=== PATIENT | male | born 1990 | race Caucasian/White ===

== ENCOUNTER 2024-03-23 04:00 | Day surgery (SDC) | payer OTHER ==
[2024-03-23] VITALS (211 sets, daily range): BP systolic 85–129; BP diastolic 43–85
[~2024-03-23] VITALS: Ht 182.9 cm; Wt 79.5 kg
--- NOTE | 2024-03-23 07:00 | NUR ---
Patient arrived to the ANR suite, identification and demographics confirmed. Patient to room 9, AAO, ambulatory, vitals obtained, ID/allergy/fall bands placed, changed into hospital gown, MARIN hose, and non-slip socks. Procedure and timeline explained for treatment and discharge. All questions answered and the patient presents no concerns at this time.
[2024-03-23] MEDS ORDERED: cloNIDine HCL 0.1 MG/TAB PO PRN (07:30)
[2024-03-23] MEDS ORDERED: PANTOPRAZOLE SODIUM Sesquihydr 40 MG/TAB PO PRN (07:30)
[2024-03-23] MEDS ORDERED: ALBUTEROL SULFATE 2.5 MG VIAL IN PRN (07:30)
[2024-03-23] MEDS ORDERED: SCOPOLAMINE 1.5 MG DIS TD PRN (07:30)
[2024-03-23] MEDS ORDERED: FAMOTIDINE 20 MG/TAB PO PRN (07:30)
[2024-03-23] MEDS ORDERED: LACTATED RINGER'S 1,000 ML IV PRN ×3 (07:30→19:00)
[2024-03-23] MEDS ORDERED: diazePAM 5 MG/TAB PO PRN ×2 (07:30→08:30)
[2024-03-23] MEDS ORDERED: CYANOCOBALAMIN 500 MCG/TAB ( B12) PO PRN (07:30)
--- NOTE | 2024-03-23 07:39 | NUR ---
Dr. Sales telephoned with patient intake information including usage, dose, last dose/time taken and initial vital signs. Patient history and allergies reviewed with MD. Orders received for 10 mg PO Valium and 0.1 mg PO Clonidine now. Will reassess per protocol in 1.5 hours and update MD with assessment and vitals.
[2024-03-23] MEDS ORDERED: ASCORBIC ACID 4,000 MG in SODIUM CHLORIDE 0.9% 1,000 ML IV SCH (08:00)
[2024-03-23 08:25] LABS: BASO% 0.9 % (0-3); EOS% 5.1 % (0-8); HEMATOCRIT 42.4 % (39.0-50.0); HEMOGLOBIN 14.2 g/dl (14.0-18.0); IMMATURE GRANULOCYTES 0.3 % (0.0-5.0); LYMPH% 25.4 % (15-41); MEAN CELL VOLUME 92.6 fL CALC (80.0-100.0); MEAN CORPUSCULAR HGB CONC 33.5 g/dL CAL (32.0-36.0); MONO% 11.9 % (2-13); NEUT# 7.18 thou/uL (1.82-7.42); NEUT% 56.4 % (42-76); RED BLOOD COUNT 4.58 mill/uL (4.70-6.10); RED CELL DISTRI WIDTH 14.1 % (11.5-15.5)
[2024-03-23 08:36] LABS: ALBUMIN 4.2 g/dL (3.2-5.0); BILIRUBIN, TOTAL 0.6 mg/dL (0.2-1.3); MAGNESIUM 2.1 mg/dL (1.6-2.3); POTASSIUM 4.3 mmol/l (3.5-5.1); TOTAL PROTEIN 6.9 g/dL (6.3-8.2)
--- NOTE | 2024-03-23 09:15 | NUR ---
Patient resting comfortably in bed. Easily aroused, maintains focus, and drifts back to sleep. No signs of active withdrawal or distress noted at this time. Continuous SPO2, rhythm, and respiratory monitoring initiated. IVF @ 250 mL/HR, room air, VSS.
[2024-03-23] MEDS ORDERED: DiphenhydrAMINE HCL 50 MG/ML SDV IV PRN (10:05)
[2024-03-23] MEDS ORDERED: THIAMINE HCL 100 MG/ML 2ML VIAL IV PRN (10:05)
[2024-03-23] MEDS ORDERED: DEXAMETHASONE SODIUM PHOSPHATE PF 10 MG/ML SDV IV PRN ×2 (10:05→19:00)
[2024-03-23] MEDS ORDERED: cloNIDine HCL 0.1 MG/TAB VT PRN (10:05)
[2024-03-23] MEDS ORDERED: STERILE WATER FOR IRRIGATION 1,000 ML BTL IR PRN (10:05)
[2024-03-23] MEDS ORDERED: cloNIDine HYDROCHLORIDE 100 MCG/ML 10 ML INJ IV PRN (10:05)
[2024-03-23] MEDS ORDERED: PROPOFOL 10 MG/ML 100ML VIAL IV PRN (10:05)
[2024-03-23] MEDS ORDERED: ROCURONIUM BROMIDE 10 MG/ML 5ML VIAL IV PRN (10:05)
[2024-03-23] MEDS ORDERED: diazePAM 5 MG/TAB VT PRN (10:05)
[2024-03-23] MEDS ORDERED: LIDOCAINE HCL 1% (10MG/ML) 100 MG/10 ML MDV IV PRN (10:05)
[2024-03-23] MEDS ORDERED: OCTREOTIDE ACETATE 100 MCG/VIAL SDV SC PRN (10:05)
[2024-03-23] MEDS ORDERED: PROPOFOL 100 ML IV PRN (10:05)
[2024-03-23] MEDS ORDERED: POTASSIUM CHLORIDE 10 MEQ/50 ML BAG IV PRN (10:05)
[2024-03-23] MEDS ORDERED: ONDANSETRON HCl 4 MG/2 ML SDV IV PRN ×3 (10:05→19:00)
[2024-03-23] MEDS ORDERED: LIDOCAINE HCL 1% (10MG/ML) 100 MG/10 ML MDV VT PRN ×2 (10:05)
[2024-03-23] MEDS ORDERED: SUCCINYLCHOLINE CHLORIDE 20 MG/ML 10ML VIAL IV PRN (10:05)
[2024-03-23] MEDS ORDERED: NALTREXONE HCL 50 MG/TAB VT PRN (10:05)
[2024-03-23] MEDS ORDERED: MAGNESIUM SULFATE HEPTAHYDRATE 100 ML IV PRN (10:05)
[2024-03-23] MEDS ORDERED: MIDAZOLAM HCL 2 MG/2 ML VIAL IV PRN (10:05)
--- NOTE | 2024-03-23 11:11 | NUR ---
Induction Note Patient to [facility] procedure room. Time out performed at 1048. Patient placed on monitors, Lucía hugger, bilateral wrist restraints applied for ET tube protection. Versed 5mg given IV push at 1058 Tourniquet applied to right arm Lidocaine 100mg given at 1106 IV push followed by Rocoronium 10mg at 1107 IV push and held for 90 seconds. Propofol bolus of 120mg given at 1109 IV push. Succinylcholine 80mg given IV push at 1110. Smooth intubation with 7.5 ETT. Positive CO2. Positive Auscultation for air exchange. ET tube secured with tape 23 @ the lip. Patient placed on ventilator for spontaneous ventilation. Placed on Propofol IV drip at 1111. OG inserted. Positive air on auscultation. Positive gastric content. Stomach washed at this time.
--- NOTE | 2024-03-23 11:15 | NUR ---
OG close note Stomach washed at this time. Naltrexone 50 mg with Clonidine 0.2 mg via OG tube. OG will be clamped for 45 minutes.
--- NOTE | 2024-03-23 12:00 | NUR ---
OG open note OG open at this time. Gastric content draining into drainage bag. OG to drain for 45 minutes. Propofol will be titrated down based on patient.
[2024-03-23] MEDS ORDERED: clonazePAM 1 MG/TAB PO PRN (12:15)
[2024-03-23] MEDS ORDERED: KLONOPIN2 MG PO (12:40)
[2024-03-23] MEDS ORDERED: NALTREXONE50 MG PO (12:40)
[2024-03-23] MEDS ORDERED: CLONIDINE0.1 MG PO (12:40)
--- NOTE | 2024-03-23 12:45 | NUR ---
OG close note Stomach washed at this time. Naltrexone 50mg via OG tube. OG will be clamped for 45 minutes.
--- NOTE | 2024-03-23 14:15 | NUR ---
OG close note Stomach washed at this time. Naltrexone 50 mg with Clonidine 0.1 mg via OG tube. OG will be clamped for 45 minutes.
--- NOTE | 2024-03-23 15:45 | NUR ---
No OG close at this time. Patient minimally reacting to treatment. Vitals, total Naltrexone & Clonidine, current Propofol infusion rate, treatment duration, and patient assessment discussed with Dr. Sales. No orders for medication administration at this time. OG will remain open to allow time for patient to continue reacting to therapy.
--- NOTE | 2024-03-23 16:45 | NUR ---
OG close note Stomach washed at this time. Naltrexone 25 mg with Valium 10 mg via OG tube. OG will be clamped for 30 minutes for closing dose.
--- NOTE | 2024-03-23 17:20 | NUR ---
Extubation note Closing medications given Benadryl 50mg IV push, Decadron 10mg IV push,Magnesium 4 grams IV, Zofran 8mg IV push, Octreotide 100mcg SC. Stomach washed out prior to extubation. Suctioned gastric content. OG removed. Patient extubated. Propofol Discontinued. Wrist restraints removed. Lucía hugger Removed. See ANR Moderate sedate recovery record for further notes and assessment.
--- NOTE | 2024-03-23 17:30 | NUR ---
phone call placed to pt father. update provided at this time. all questions and concerns addressed.
--- NOTE | 2024-03-23 17:55 | NUR ---
Patient to room 284 in no acute distress. Transfer of care to [facility], bedside report provided. 2L NC placed per orders, IVF to continue at 100ml/hr. VSS. Patient resting comfortably, no adventitious breath sounds appreciated. Bed alarm set. See chart/EMAR for procedural details and assessments. Handoff of care at the time of this note.
--- NOTE | 2024-03-23 17:59 | NUR ---
patient arrived to ms from anr bedside report given from titi; vitals stable; iv site clean and intact running with LR @100; no s.s of distress; on 2l of ; breathing unlabored and even; personal items in anr locker; bed in lowest postion; safety measures in place
[2024-03-23] MEDS ORDERED: HALOPERIDOL LACTATE 5 MG/ML SDV IV PRN (19:00)
[2024-03-23] MEDS ORDERED: ACETAMINOPHEN 500 MG TAB PO PRN (19:00)
[2024-03-23] MEDS ORDERED: PROMETHAZINE HCL 12.5 MG in SODIUM CHLORIDE 0.9% 50 ML IV PRN (19:00)
[2024-03-23] MEDS ORDERED: ACETAMINOPHEN 1,000 MG/100 ML VIAL IV PRN (19:00)
[2024-03-23] MEDS ORDERED: PROMETHAZINE HCL 25 MG in SODIUM CHLORIDE 0.9% 50 ML IV PRN (19:00)
[2024-03-23] MEDS ORDERED: KETOROLAC TROMETHAMINE 30 MG/ML SDV IV PRN (19:00)
[2024-03-23] MEDS ORDERED: LORazepam 2 MG/ML IV PRN ×2 (19:00)
[2024-03-23] MEDS ORDERED: PATIENT' OWN MED CONTROLLED 1 EA DOSE IV PRN (21:00)
[2024-03-23] MEDS ORDERED: cloNIDine HCL 0.1 MG/TAB PO SCH (23:00)
[2024-03-24 03:51] VITALS: BP 121/59
[2024-03-24] MEDS ORDERED: NALTREXONE HCL 50 MG/TAB PO SCH (04:00)
[2024-03-24] MEDS ORDERED: clonazePAM 1 MG/TAB PO PRN ×2 (04:00→08:00)
[2024-03-24] MEDS ORDERED: cloNIDine HCL 0.1 MG/TAB PO PRN (04:00)
--- NOTE | 2024-03-24 04:33 | NUR ---
SCHEDULED MEDICAITONS ADMINSITERED PER EMAR. PT TOLERATED WELL. PT IS A/OX1 TO SELF, AROUSABLE TO SPEECH. PT ON RM AIR. HAS BEEN ABLE TO AMBULATED TO BATHROOM WITH STAND BY ASSIST AND STEADY GAIT. PT DENIES ANY N/V/P AT THIS TIME. VSS. NO S/S OF DISTRESS. IVF RUNNING PER EMAR. BED ALARM ON AND SAFETY PRECAUTIONS IN PLACE.
[2024-03-24] MEDS ORDERED: cloNIDine HCL 0.1 MG/TAB PO SCH (08:00)
[2024-03-24] MEDS ORDERED: ACETAMINOPHEN 325 MG/TAB PO SCH (08:00)
[2024-03-24] MEDS ORDERED: PANTOPRAZOLE SODIUM Sesquihydr 40 MG/TAB PO SCH (08:00)
[2024-03-24 08:14] VITALS: BP 116/75
--- NOTE | 2024-03-24 08:30 | NUR ---
PATIENT RESTING IN BED; ROOM AIR; BREATHING UNLABORED AND EVEN; DENIED ANY PAIN; DENIED ANY N/D/V AT THIS TIME; IV SITE CLEAN AND INTACT RUNNING WITH LR @100; NO S.S OF DISTRESS AT THIS TIME; SARAVANAN HUGGER APPLIED WITH NO ISSUES; ENCOURAGED PATIENT TO TRY TO EAT BREAKFAST; TOLERATED HIS BREAKFAST WITH NO ISSUES; CALL LIGHT WITHIN REACH, BED IN LOWEST POSTION; SAFTEY MEASURE IN PLACE
[2024-03-24] MEDS ORDERED: ACETAMINOPHEN 500 MG TAB PO PRN (09:00)
[2024-03-24] MEDS ORDERED: Cholecalciferol 2,000 UNIT/TAB PO PRN (09:00)
[2024-03-24] MEDS ORDERED: MAGNESIUM OXIDE 400 MG/TAB PO PRN (09:00)
--- NOTE | 2024-03-24 12:29 | NUR ---
patient currently taken shower with no issues; room air; personal items within reach; patient tolerated some lunch; denied any pain; denied any n/d/v; no s.s of distress; call light within reach; bed in lowest postion;safety measures in place
--- NOTE | 2024-03-24 14:26 | NUR ---
clarissa tolerated discharge medications; and ambulated down [address] with no issues
== END 2024-03-24 14:52 | disposition home or self-care (01) | DRG 897 ==
LOC: MS2 04:00 → ANR 04:00 → MS2 17:15 → ANR 03-24 14:52
PROVIDERS: ATTEND Anesthesiology
DX: F11.20 Opioid dependence, uncomplicated (principal)
CPT/HCPCS: J1100; J2354; J3475